=== PATIENT | male | born 1980 | race Caucasian/White ===

== ENCOUNTER 2017-08-27 07:57 | Emergency (ER) | payer OTHER ==
--- NOTE | 2017-08-27 08:47 | ED Physician Documentation ---
PD HPI UPPER EXT INJURY - Stated complaint Stated Complaint: LEFT HAND INJ/PX - Chief complaint Chief Complaint: Ext Problem - History obtained from History obtained from: Patient - History of Present Illness Location: Left, Wrist Type of injury: Other (use yesterday) Where injury occurred: Home Timing - onset: Enter time (299), Today Timing - duration: Hours Timing - details: Abrupt onset, Still present Improved by: Rest, Immobilization Worsened by: Moving, Palpating Associated symptoms: Numbness. No: Weakness, Tingling, Swelling Contributing factors: No: Anticoagulated Similar symptoms before: Has not had sx before Recently seen: Not recently seen - Additonal information Additional information: 37-year-old male has recently had vasectomy done about 2 weeks ago without an his yard digging a hole yesterday while he had taken some of his pain medication. He did not feel any pain in his wrist at all at that time and in the middle of the night he was awakened with severe pain in his wrist. He has had persistent pain and feels that when he immobilizes his wrist the pain is much improved. He does not have any swelling associated with this no numbness or tingling. He has not injured this wrist previously. Review of Systems Constitutional: denies: Fever Eyes: denies: Decreased vision Ears: denies: Ear pain Nose: denies: Congestion Throat: denies: Sore throat Respiratory: denies: Cough GI: denies: Vomiting Skin: denies: Rash Musculoskeletal: reports: Extremity pain, Joint pain. denies: Neck pain, Back pain, Extremity swelling, Joint swelling Neurologic: denies: Generalized weakness, Focal weakness PD PAST MEDICAL HISTORY - Present Medications Home Medications: Ambulatory Orders Medication Instructions Recorded Confirmed Oxycodone HCl/Acetaminophen 08/27/17 [Oxycodone-Acetaminophen 5-325] Sulfamethox/Trimeth 800/160 08/27/17 [Bactrim Ds] - Allergies Allergies/Adverse Reactions: Allergies Allergy/AdvReac Type Severity Reaction Status Date / Time No Known Drug Allergies Allergy Verified 08/27/17 08:10 PD ED PE NORMAL - Vitals Vital signs reviewed: Yes (hypertensive mild) - General General: Alert and oriented X 3, No acute distress, Well developed/nourished - HEENT HEENT: Atraumatic, PERRL, EOMI - Neck Neck: Supple, no meningeal sign - Respiratory Respiratory: No respiratory distress - Derm Derm: Normal color, Warm and dry, No rash - Extremities Extremities: No deformity, No edema, Other (There is mild tenderness to the volar wrist and pain with flexion/ext. There is no appreciated swelling and the distal n/v is intact. ) - Neuro Neuro: No motor deficit, No sensory deficit Eye Opening: Spontaneous Motor: Obeys Commands Verbal: Oriented GCS Score: 15 - Psych Psych: Normal mood, Normal affect Results - Vitals Vitals: Vital Signs - 24 hr 08/27/17 08:04 Temperature 37.6 C H Heart Rate 75 Respiratory 16 Rate Blood Pressure 132/87 H O2 Saturation 98 Oxygen O2 Source Room air - Rads (name of study) left wrist Radiology: Prelim report reviewed (IMPRESSION: Normal wrist radiography. ), EMP read indepedently, See rad report Procedures - Splint (location) left wrist Splint applied by: Tech Type of splint: Fiberglass, Volar cock up Other: Patient tolerated well, No complications, Neurovascular intact, Good alignment PD MEDICAL DECISION MAKING - ED course Complexity details: reviewed old records, reviewed results, re-evaluated patient , considered differential, d/w patient ED course: 37 y/o male with overuse wrist pain without fracture is placed into a volar splint and diagnosed with a sprain. Gout and carpal tunnel are less likely. Departure - Departure Disposition: 01 Home, Self Care Clinical Impression: Left wrist sprain Qualifiers: Encounter type: initial encounter Qualified Code(s): S63.502A - Unspecified sprain of left wrist, initial encounter Condition: Stable Instructions: ED Sprain Wrist Follow-Up: Oscar Nicole MD [Primary Care Provider] -
--- NOTE | 2017-08-27 09:12 | XRAY Report ---
EXAM: LEFT WRIST RADIOGRAPHY EXAM DATE: 08/27/2017 09:05 AM. CLINICAL HISTORY: Volar pain . COMPARISON: None. TECHNIQUE: 3 views. FINDINGS: Bones: Normal. No fractures or bone lesions. No bony erosions. Joints: Normal. No subluxations. Soft Tissues: Normal. No soft tissue swelling. IMPRESSION: Normal wrist radiography. [facility] Referring Provider Line: [phone] SITE ID: [id number]
[2017-08-27 09:47] VITALS: BP 134/60
== END 2017-08-27 09:45 | disposition home or self-care (01) ==
LOC: ED 07:57
DX: S63.502A Unspecified sprain of left wrist, initial encounter (principal); X50.3XXA Overexertion from repetitive movements, initial encounter; Y93.H1 Activity, digging, shoveling and raking; Y92.007 Garden or yard of unspecified non-institutional (private) residence as the place of occurrence of the external cause
CPT/HCPCS: 29125; 99283